=== PATIENT | female | born 1970 | race Caucasian/White ===

== ENCOUNTER 2021-09-08 18:10 | Emergency (ER) | payer BC, SELFPAY ==
--- NOTE | ~2021-09-08 | CT_ITS ---
EXAMINATION: CT abdomen pelvis wo con DATE: 09/08/2021 20:17 INDICATION: Right lower quadrant abdominal pain for 3 days TECHNIQUE: Computed tomography (CT) of the abdomen and pelvis was performed without intravenous contr ast. Automated exposure control and iterative reconstruction technique were employed. Exam dose: 714 .79 mGy-cm total exam DLP. COMPARISON: None. FINDINGS: Minimal discoid atelectasis or scarring at the left lung base. No infiltrate or consolidati on. Normal heart size. Right atrial and right ventricular pacemaker leads. No pericardial or pleural effu navid. The liver, gallbladder, bile ducts, pancreas and pancreatic duct are unremarkable. The spleen is absent. Normal morphology of the adrenal glands. No renal mass lesion or urinary tract calculus or hydroureteronephrosis. The urinary bladder is relat ively evacuated and unremarkable. Status post hysterectomy. There is abdominal aortic and bilateral iliac arterial calcification but no abdominal aortic aneurysm . No intraperitoneal or retroperitoneal or pelvic mass lesion or adenopathy or ascites. Normal appendix. Sutures are noted at the splenic flexure of the colon. No bowel obstruction or intra peritoneal free air. There is a left lateral abdominal wall spigelian hernia containing a loop of n nonobstructed nonstran gulated small bowel. Small fat-containing left inguinal hernia. Small fat-containing umbilical hernia. Midline supraumbilical and infraumbilical surgical scar of the abdominal wall. Severe degenerative disc disease at L5-S1. 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 Reviewed, dictated and finalized at [facility].
[2021-09-08 18:12] VITALS: BP 153/109; PULSE 90; RESP 20; TEMP 36.4; O2SAT 99
[2021-09-08 18:24] LABS: Basophils Absolute Auto 0.1 K/mm3 (0.0-0.1); Basophils Percent Auto 0.4 % (0.2-1.2); Eosinophils Absolute Auto 0.2 K/mm3 (0-0.3); Eosinophils Percent Auto 1.6 % (0-4.4); Hematocrit 41.3 % (37.0-47.0); Hemoglobin 13.6 g/dL (12.0-15.0); Immature Granulocyte Absolute 0.04 K/mm3 (0.00-0.031); Immature Granulocyte Percent A 0.3 % (0-0.5); Lymphocytes Absolute Auto 3.31 K/mm3 (0.9-3.2); Lymphocytes Percent Auto 27.1 % (18.3-44.2); Mean Corpuscular HGB Conc 32.9 g/dl (32-36); Mean Corpuscular Hemoglobin 31.3 pg (26-34); Mean Corpuscular Volume 94.9 fl (80-100); Mean Platelet Volume 9.3 fl (7.4-10.4); Monocytes Absolute Auto 1.3 K/mm3 (0.1-0.6); Monocytes Percent Auto 10.6 % (2.6-8.5); Neutrophils Absolute Auto 7.3 K/mm3 (1.3-6.7); Platelet Count Result 419 k/mm3 (150-375); Red Blood Count 4.35 M/mm3 (4.2-5.4); Red Cell Distribution Width 15.5 % (11.5-14.5); White Blood Count 12.2 K/mm3 (4.5-10.0)
[2021-09-08 18:42] LABS: Alanine Aminotransferase 17 U/L (6-35); Albumin Level 4.5 g/dL (3.5-5.1); Alkaline Phosphatase 111 U/L (38-126); Anion Gap 8 mmol/L (8-16); Aspartate Amino Transferase 30 U/L (14-36); Bilirubin,Total 0.6 mg/dL (0.2-1.3); Blood Urea Nitrogen 12 mg/dL (7-17); Calcium 9.3 mg/dL (8.4-10.2); Carbon Dioxide 24 mmol/L (22-30); Chloride 104 mmol/L (98-107); Estimated CRCL calculation 53 ml/min; Estimated Glomerular Filt Rate 58; Glucose 99 mg/dL (65-110); Lipase 59 U/L (23-300); Potassium 4.3 mmol/L (3.4-5.0); Sodium 136 mmol/L (137-145)
--- NOTE | 2021-09-08 19:22 | ED.ABDPAIN ---
HPI - Abdominal Pain General Chief Complaint: Abdominal Pain Stated Complaint: abd pain Time Seen by Provider: 09/08/21 19:06 Source: patient History of Present Illness HPI narrative: Patient presents with right lower quadrant abdominal pain. Reports pain for the past couple days getting progressively worse. Is associated with nausea but denies any vomiting diarrhea urinary symptoms or vaginal discharge. She does report a prior history of abdominal trauma with multiple abdominal surgeries. Sure she had a total hysterectomy thinks she still has her appendix. Denies any fevers chills. Related Data Allergies Allergy/AdvReac Type Severity Reaction Status Date / Time baclofen AdvReac Other Verified 09/08/21 18:11 Review of Systems Review of Systems: CONSTITUTIONAL: Denies fever, chills, or sweats. EYES: Denies visual changes, redness, or discharge. ENT: Denies rhinorrhea, congestion, sore throat, or otalgia. CARDIOVASCULAR: Denies chest pain, palpitations, or edema. RESPIRATORY: Denies cough or dyspnea. GASTROINTESTINAL: Abdominal pain with nausea GENITOURINARY: Denies dysuria or hematuria. SKIN: Denies rash or itching. MUSCULOSKELETAL: Denies back pain, joint pain, or myalgia. NEUROLOGIC: Denies headache, numbness, dizziness, or weakness. PSYCHIATRIC: Denies anxiety or depression. All systems reviewed & are unremarkable except as noted in HPI and below Exam Narrative: GENERAL: Well-appearing, well-nourished, and in no acute distress. HEAD: Normocephalic, atraumatic. EYES: PERRLA and EOMI. ENT: Nares clear, no rhinorrhea or epistaxis. Mucous membranes moist. NECK: Supple. No masses. No JVD CHEST: Clear to auscultation. No respiratory distress. No wheezes rales or rhonchi HEART: Regular rate and rhythm. No murmur heard. Normal peripheral pulses. ABDOMEN: Moderate tenderness in right lower quadrant with guarding soft, nondistended EXTREMITIES: Normal range of motion. No edema. SKIN: Warm, dry, no rash. NEURO: No focal deficits. Alert and oriented x3. PSYCH: Normal mood and affect. Course Reevaluation(s) Reevaluation #1: Results and plan reviewed with patient. Patient is comfortable outpatient plan. Date: 09/08/21 Time: 20:35 Vital Signs Vital signs: Vital Signs Temperature 36.4 C L 09/08/21 18:12 Pulse Rate 90 09/08/21 18:12 Respiratory Rate 20 09/08/21 18:12 Blood Pressure 153/109 H 09/08/21 18:12 Pulse Oximetry 99 09/08/21 18:12 Oxygen Delivery Room Air 09/08/21 18:12 Temperature 36.8 C 09/08/21 20:47 Pulse Rate 68 09/08/21 20:26 Respiratory Rate 16 09/08/21 20:26 Blood Pressure 142/88 H 09/08/21 20:26 Pulse Oximetry 100 09/08/21 20:26 Oxygen Delivery Room Air 09/08/21 18:12 MDM - Abdominal Pain MDM Narrative Medical decision making narrative: H&P as above, vss, pt looks clinically well, exam right lower quadrant pain, labs with mild leukocytosis UA concerning for infection img without acute process, additional labs/img considered, symptomatic relief available as needed, on reevaluation pt continues to looks clinically well. Suspect UTI, dns severe sepsis, severe dehydration. plan to tx/monitor as op w/ pcm f/u findings/plan discussed with pt, pt agree/comfortable with plan, return precautions given Lab Data Result diagrams: 09/08/21 18:16 09/08/21 18:16 Labs: Lab Results 09/08/21 09/08/21 09/08/21 Range/Units 18:16 18:16 19:27 WBC 12.2 H (4.5-10.0) K/mm3 RBC 4.35 (4.2-5.4) M/mm3 Hgb 13.6 (12.0-15.0) g/dL Hct 41.3 (37.0-47.0) % MCV 94.9 (80-100) fl MCH 31.3 (26-34) pg MCHC 32.9 (32-36) g/dl RDW 15.5 H (11.5-14.5) % Plt Count 419 H (150-375) k/mm3 MPV 9.3 (7.4-10.4) fl Immature Gran % (Auto) 0.3 (0-0.5) % Neut % (Auto) 60.0 (45.5-73.1) % Lymph % (Auto) 27.1 (18.3-44.2) % [place] % (Auto) 10.6 H (2.6-8.5) % Eos % (Auto) 1.6 (0-4.4) % Baso % (Auto) 0.4
[2021-09-08 19:34] LABS: Appearance Urine Slightly Cloudy (Clear); Bilirubin Urine Negative (Negative); Blood Urine Negative (Negative); Color Urine Yellow (Yellow); Glucose Urine UA Negative (Negative); Ketones Urine Negative (Negative); Leukocyte Esterase Ur 1+ LEU/UL (Negative); Nitrate Urine Positive (Negative); Protein Urine Negative (Negative); Urobilinogen Urine 0.2 mg/dL (<2.0)
[2021-09-08 19:39] LABS: Bacteria Urine 2+ /hpf; Mucus Urine Rare /lpf; Squamous Epithelial Cell Urine Many /hpf (Few); WBC Clumps Urine Present /HPF; WBC Urine 31-50 /hpf
[2021-09-08 19:41] LABS: Add Urine Microscopic? YES
--- NOTE | 2021-09-08 20:01 | PC.NURSE ---
PT IN ROOM 2 REPORTS PT IS SMOKING MARIJUANA IN HER ROOM. CHARGE NURSE NOTIFIED AND SHE THEN NOTIFIED SECURITY
[2021-09-08 20:26] VITALS: BP 142/88; PULSE 68; RESP 16; TEMP 36.8; O2SAT 100
[2021-09-08] MEDS: CEPHALEXIN 500 MG CAPSULE PO (20:39)
[2021-09-08] MEDS: KETOROLAC 30 MG/ML VIAL (*BKC) IM (20:40)
[2021-09-08 20:47] VITALS: TEMP 36.8
== END 2021-09-08 20:50 | disposition home or self-care (01) ==
PROVIDERS: Emergency Medicine; Emergency Provider Emergency Medicine
DX: N39.0 Urinary tract infection, site not specified (principal); Z90.81 Acquired absence of spleen; Z90.49 Acquired absence of other specified parts of digestive tract; K43.9 Ventral hernia without obstruction or gangrene; K40.90 Unilateral inguinal hernia, without obstruction or gangrene, not specified as recurrent; K42.9 Umbilical hernia without obstruction or gangrene; M51.37 Other intervertebral disc degeneration, lumbosacral region; Z90.710 Acquired absence of both cervix and uterus
CPT/HCPCS: 36415; 74176; 80053; 81001; 83690; 85025; 87077; 87086; 87186; 96372; 99284; A9270; J1885